=== PATIENT | female | born 1995 ===

== ENCOUNTER → 2025-03-23 09:59 | Outpatient (CLI) | payer OTHER | END | disposition home or self-care (01) | LOC: PRENATAL 09:59 | PROVIDERS: ATTEND Obstetrics & Gynecology Maternal & Fetal Medicine | DX: O36.80X0 Pregnancy with inconclusive fetal viability, not applicable or unspecified (principal); Z36.82 Encounter for antenatal screening for nuchal translucency; Z3A.13 13 weeks gestation of pregnancy ==

== ENCOUNTER → 2025-05-10 11:52 | Outpatient (CLI) | payer OTHER | END | disposition home or self-care (01) | LOC: PRENATAL 11:52 | PROVIDERS: ATTEND Obstetrics & Gynecology Maternal & Fetal Medicine | DX: O44.00 Complete placenta previa NOS or without hemorrhage, unspecified trimester (principal); O43.90 Unspecified placental disorder, unspecified trimester; Z3A.20 20 weeks gestation of pregnancy ==

== ENCOUNTER 2025-07-05 08:29 | Outpatient (CLI) | payer OTHER | END 2025-07-05 08:30 | disposition home or self-care (01) | LOC: PRENATAL 08:29 | PROVIDERS: ATTEND Obstetrics & Gynecology Maternal & Fetal Medicine | DX: O26.849 Uterine size-date discrepancy, unspecified trimester (principal); O43.90 Unspecified placental disorder, unspecified trimester; Z3A.28 28 weeks gestation of pregnancy ==